=== PATIENT | male | born 1965 | race Caucasian/White ===

== ENCOUNTER 2022-01-31 07:46 | Inpatient (IN) ==
--- NOTE | 2022-01-05 09:01 | PAT Medication Instructions ---
Medication Instructions Date of Service January 05, 2022 Home Medications apple cider vinegar 500 mg tablet 500 mg PO DAILY cinnamon bark 500 mg capsule (Cinnamon) 500 mg PO DAILY cyanocobalamin (vitamin B-12) 500 mcg tablet 500 mcg PO DAILY losartan 25 mg tablet 25 mg PO QAM niacin 250 mg tablet 250 mg PO DAILY tramadol 50 mg tablet 50 mg PO BID PRN STOP taking 2 weeks before surgery apple cider vinegar 500 mg tablet 500 mg PO DAILY cinnamon bark 500 mg capsule (Cinnamon) 500 mg PO DAILY STOP taking 48 hours before surgery niacin 250 mg tablet 250 mg PO DAILY DO NOT take the morning of surgery cyanocobalamin (vitamin B-12) 500 mcg tablet 500 mcg PO DAILY losartan 25 mg tablet 25 mg PO QAM Take morning of surgery With a small sip of water, OTHERWISE NOTHING TO EAT OR DRINK AFTER MIDNIGHT: tramadol 50 mg tablet 50 mg PO BID PRN(if needed) Take evening before surgery tramadol 50 mg tablet 50 mg PO BID PRN(if needed) Other Notes If you have any questions please call us at [phone] or [phone] or [phone] or [phone]
--- NOTE | 2022-01-10 11:27 | Anesthesiology Consultation ---
Date of Service January 10, 2022 Assessment & Plan (1) Encounter for pre-operative examination: COVID screening: Per assessment on 01/10: No known COVID-19 positive contacts or current COVID-19 related symptoms. Travel screen negative. Patient vaccinated. Patient was Covid positive 10/28/21 (home test) > symptoms resolved. DOS greater than 90 days after Covid positive testing. At surgeon discretion if preop Covid testing being done. Chart Review Chart Review: Acceptable Risk for Surgery and Patient seen in Pre Admission Testing Teaching & Discussion Pre-Anesthesia Teaching/Discussion Notes: Instructed NPO after midnight before surgery,except medications with 15 cc of water. Medication instructions provided according to the PAT guidelines. History Surgery Operation Date: 01/31/22 07:45 Proposed Procedures p L2-L4 Decompression and Fusion, Spinal Cord Monitoring - Graham Webb DO Height/Weight Height: 5 ft 10 in Weight: 103 kg Allergies Allergy/AdvReac Type Severity Reaction Status Date / Time No Known Allergies Allergy Verified 01/04/22 14:13 Medications Home Medications Medication Instructions Recorded Confirmed Last Taken apple cider vinegar 500 mg tablet 500 mg PO DAILY 01/04/22 01/04/22 Unknown cinnamon bark 500 mg capsule 500 mg PO DAILY 01/04/22 01/04/22 Unknown (Cinnamon) cyanocobalamin (vitamin B-12) 500 500 mcg PO DAILY 01/04/22 01/04/22 Unknown mcg tablet losartan 25 mg tablet 25 mg PO QAM 01/04/22 01/04/22 Unknown niacin 250 mg tablet 250 mg PO DAILY 01/04/22 01/04/22 Unknown tramadol 50 mg tablet 50 mg PO BID PRN Pain 01/04/22 01/04/22 Unknown Past Medical History Medical History (Updated 01/10/22 @ 11:24 by Sepideh Byrne) Arthritis Degenerative disc disease History of COVID-19 10/28/21 (home test) > symptoms resolved History of kidney stones Hx of gastritis Hypertension Spinal stenosis Exercise / Class Metabolic Activity II 4-5 Yardwork/Stairs/Walk up hill Past Family History Family History (Updated 01/04/22 @ 14:20 by Tori Esquivel RN) Other No family history of adverse response to anesthesia Past Surgical History Surgical History (Updated 01/05/22 @ 10:32 by Sepideh Byrne) Cornea transplant recipient UNKNOWN SIDE H/O arthroscopy of shoulder UNKNOWN SIDE History of colonoscopy History of cystoscopy STONE REMOVAL History of esophagogastroduodenoscopy (EGD) Past Anesthesia History No Hx of Anesthesia Complications and No Family Hx of Anesthesia Complications History of PONV No Hx of PONV and No Hx of Motion Sickness Social History Smoking Status: Never smoker tobacco type: smokeless tobacco Do You Dip or Chew Tobacco: No (QUIT 2010) Hx Alcohol Use: Yes Alcohol type: beer alcohol intake frequency: a few times a month substance use type: does not use Review of Systems Patient denies chest pain, shortness of breath, dyspnea on exertion, fever, chills, cough, wheezing, palpitations. Physical Exam Vital Signs VITALS BP 147/83 P 70 TEMP 98.6 SP02 98%RA RESP 16 PHYSICAL Full cervical extension range of motion. Full TMJ range of motion. TMD 3 finger breaths Mallampati Score 3 Dentition: intact Lungs: clear throughout to auscultation Cardiac: regular rate and rhythm, no murmurs noted Spine: normal Carotid arteries: negative bruit Extremities: no edema Lab Results Anesthesia Preop Results Results Anesthesia Widget: WBC 5.95 K/ul (4.8-10.8) 01/10/22 Hgb 15.3 g/dl (14.0-18.0) 01/10/22 Hct 45.6 % (40.1-51.0) 01/10/22 Plt 260 K/uL (130-400) 01/10/22 Na 138 mmol/L (136-145) 01/10/22 K 3.8 mmol/L (3.5-5.1) 01/10/22 Cl 104 mmol/L (98-107) 01/10/22 CO2 28 mmol/L (21-32) 01/10/22 BUN 12 mg/dl (6-23) 01/10/22 Creat 0.86 mg/dl (0.6-1.4) 01/10/22 Glucose Level 123 mg/dl (70-99(Fasting)) H 01/10/22 PT 10.8 Seconds (9.0-12.0) 01/10/22 PTT 25.1 Seconds (21.0-31.0) 01/10/22 INR 1.0 (0.9-1.1) 01/10/22 Urine Color Yellow 01/10/22 Urine Appearance Clear (Clear) 01/10/22 Urine pH 6.0 (4.5-7.5) 01/10/22 Urine Specific [place] 1.023 (1.000-1.030) 01/10/22 Urine Protein Negative (Negative) 01/10/22 Urine Glucose (UA) 2+ (Negative) H 01/10/22 Urine Ketones Negative (Negative) 01/10/22 Urine Blood Negative (Negative) 01/10/22 Urine Nitrite Negative (Negative) 01/10/22 Urine Bilirubin Negative (Negative) 01/10/22 Urine Urobilinogen Negative (Negative) 01/10/22 Urine Leukocyte Esterase Negative (Negative) 01/10/22 Blood Type O Positive 01/10/22 Antibody Screen NEGATIVE 01/10/22 Testing Electrocardiogram Date: 01/10/22 NSR with sinus arrhythmia at 60bpm. Rightward axis. Chest X-Ray Date: 01/10/22 FINDINGS: Cardiac silhouette is enlarged. No pneumothorax, pleural effusion, airspace consolidation or overt pulmonary edema. Bones of the chest appear grossly intact. Degenerative changes of the shoulders and spine. Healed chronic fracture of the lateral right ninth rib. IMPRESSION: No acute process of the chest. COVID-19 Risk Screen Screening Information COVID-19 Screen Date: 01/10/22 Exposure 21 Days Family/Household +COVID Last 21 Days: No Exposure 10 Days Any COVID Exposure Last 10 Days: No Symptoms Last 10 Days Experienced COVID Sx Last 10 Days: No + COVID 0-90 Days COVID + in Last 0-90 Days: Yes + COVID Test 0-10 Day: No + COVID Test 11-90 Day: Yes
[~2022-01-31 07:46] MED LIST: ACETAMINOPHEN 500 MG TAB PO SCH; CeleBREX 200 MG CAP PO SCH; GABAPENTIN 600 MG DOSE PO SCH; LR 15ML/HR IV SCH; ceFAZolin 2000MG 2,000 MG/15 ML SYR IV SCH
[2022-01-31] MEDS ORDERED: LIDOCAINE 2% MPF LOCAL 5 ML VIAL INFIL ONE (08:39)
[2022-01-31] MEDS ORDERED: GLYCOPYRROLATE 0.2 MG/ML VIAL ONE (08:39)
[2022-01-31] MEDS ORDERED: ROCURONIUM BROMIDE 10 MG/ML 5 ML VIAL IV ONE ×4 (08:39→10:43)
[2022-01-31] MEDS ORDERED: DEXAMETHASONE SOD INJ 4 MG/ML VIAL ONE (08:39)
[2022-01-31] MEDS ORDERED: MIDAZOLAM HCL 1 MG/ML 2ML VIAL ONE (08:39)
[2022-01-31] MEDS ORDERED: PROPOFOL IV EMULSION 10 MG/ML 20 ML VIAL IV ONE (08:39)
[2022-01-31] MEDS ORDERED: ONDANSETRON INJ 2 MG/ML 2 ML VIAL ONE (08:39)
[2022-01-31] MEDS ORDERED: NEOSTIGMINE METHYLSULFATE 1 MG/ML 10ML VIAL ONE (08:39)
[2022-01-31] MEDS ORDERED: fentaNYL citrate 100 MCG/2 ML VIAL ONE (08:40)
[2022-01-31] MEDS ORDERED: ePHEDrine sulfate 50 MG/ML AMP IV PRN (09:19)
[2022-01-31] MEDS ORDERED: fentaNYL citrate 100 MCG/2 ML VIAL IV PRN (09:19)
[2022-01-31] MEDS ORDERED: HYDROmorphone INJ 2 MG/ML SYR/VIAL IV PRN (09:19)
[2022-01-31] MEDS ORDERED: ONDANSETRON INJ 2 MG/ML 2 ML VIAL IV PRN ×2 (09:19→14:39)
[2022-01-31] MEDS ORDERED: ATROPINE SULFATE 0.1 MG/ML 10ML SYR IV PRN (09:19)
--- NOTE | 2022-01-31 09:29 | History & Physical Bridge Note ---
Date of Service January 31, 2022 History & Physical Bridge Note I have examined the patient, reviewed the History & Physical and in the interval since the performance of the History & Physical I have noted the following changes of clinical significance: no changes noted
--- NOTE | 2022-01-31 09:29 | History & Physical Report ---
Date of Service January 31, 2022 Assessment & Plan (1) Neurogenic claudication due to lumbar spinal stenosis: Plan: L2 L4 decompression and fusion History of Present Illness Chief Complaint: Back and bilateral leg pain Primary Care Provider: [place] This is a 55-year-old male who presents with chronic persistent back and leg pain after failing course of nonoperative care is here for surgical invention. Allergies Allergy/AdvReac Type Severity Reaction Status Date / Time No Known Allergies Allergy Verified 01/31/22 08:06 Home Medications Medication Instructions Recorded Confirmed Type apple cider vinegar 500 mg tablet 500 mg PO DAILY 01/04/22 01/31/22 History cinnamon bark 500 mg capsule 500 mg PO DAILY 01/04/22 01/31/22 History (Cinnamon) cyanocobalamin (vitamin B-12) 500 500 mcg PO DAILY 01/04/22 01/31/22 History mcg tablet losartan 25 mg tablet 25 mg PO QAM 01/04/22 01/31/22 History niacin 250 mg tablet 250 mg PO DAILY 01/04/22 01/31/22 History tramadol 50 mg tablet 50 mg PO BID PRN Pain 01/04/22 01/31/22 History Past Med/Surg History Medical History (Updated 01/31/22 @ 09:29 by Graham Webb DO) Arthritis Degenerative disc disease History of COVID-19 10/28/21 (home test) > symptoms resolved History of kidney stones Hx of gastritis Hypertension Spinal stenosis Surgical History Cornea transplant recipient UNKNOWN SIDE H/O arthroscopy of shoulder UNKNOWN SIDE History of colonoscopy History of cystoscopy STONE REMOVAL History of esophagogastroduodenoscopy (EGD) Family History (Updated 01/04/22 @ 14:20 by Tori Esquivel RN) Other No family history of adverse response to anesthesia Social History Smoking Status: Never smoker Second Hand Exposure: Yes (IN THE PAST); Do You Dip or Chew Tobacco: No (QUIT 2010); Hx Alcohol Use: Yes Alcohol type: beer Preferred Language: [place] Coil Maker Required: No Beliefs That Will Affect Care: None Current Living Situation: Spouse Feels Safe at Home: Yes Safety Concerns: Feels Safe At This Time Assistive Devices: Contacts, Glasses and Hearing Aid - Right Physical Exam Physical Exam: Patient is alert and oriented Heart regular rhythm Lungs clear Results & Data Results & Data ([facility]) Vital Signs (Past 12 Hours) Vital Signs Temp Pulse Resp BP Pulse Ox O2 Del Method 01/31/22 08:09 36.7 C 83 20 162/75 H 96 Room Air
[2022-01-31] MEDS ORDERED: BUPIVACAINE/EPINEPHRINE 0.25% 1:200,000 30 ML VIAL ONE (09:58)
[2022-01-31] MEDS ORDERED: ceFAZolin 330 MG/ML 1 GM VIAL ONE (09:58)
[2022-01-31] MEDS ORDERED: HYDROmorphone INJ 2 MG/ML SYR/VIAL ONE (10:30)
[2022-01-31] MEDS ORDERED: FLOSEAL HEMOSTATIC MATRIX 10ML TOP ONE (10:55)
--- NOTE | 2022-01-31 12:41 | Operative Report ---
Post Operative Report Pre & Post Diagnosis Operation Date: 01/31/22 09:35 Pre-Op Diagnosis: Spinal Stenosis, Lumbar Region with Neurogenic Claudication Post-Op Diagnosis: Spinal Stenosis, Lumbar Region with Neurogenic Claudication I identified the patient and participated in the time-out.: Yes Procedure Operation Date: 01/31/22 09:35 Actual Procedures #1 lumbar decompression with bilateral medial facetectomies and foraminotomies L1-L2, L2-L3 and L3-L4. #2 posterior spinal fusion L2-L3 L3-L4. #3 placement of posterior instrumentation L2-L4. #5 placement of Spira 13 x 26 mm cage at L2-L3 and 14 x 26 mm cage at L3-L4. #6 placement locally harvested morselized autograft and posterior gutters. #7 placement of I factor combined with V toss in interbody space and posterior lateral gutters. Surgeon Graham Webb, Hydro Station Operator None Estimated Blood Loss 250 Findings See Below The patient is 5 foot 10 weighing over 105 kg with a BMI in excess of 33. The patient's body habitus did contribute to significant technical difficulty required deepest retractors longer instruments in order to perform his procedure. He has had at least 50% increased operative time. Specimens None Indications This is a 56-year-old male who presents above-mentioned diagnosis after failing course of nonoperative care is here for surgical invention. Description of Procedure Patient met with identified informed consent obtained. Patient was then taken to the operative suite underwent patient placed in a prone position the Jex table top Fermín frame. All bony prominences well-padded eyes inspected to ensure no external pressure placed upon the. This point the lumbar spine was prepped and draped in normal sterile fashion. Sharp dissection with the assistance of Bovie cautery was performed down to and exposing the lamina and transverse processes of L2-L3-L4 bilaterally from a caudal cephalad fashion complete laminectomy of L3 L2 and partial laminectomy of L1 was performed including bilateral medial facetectomies and foraminotomies addressing severe spinal stenosis. Pedicle screws then placed in L2-L3-L4 bilaterally with assistance of fluoroscopy the properly sized cynthia placed. By way of a transforaminal approach on the left complete discectomy of L3-L4 on the left was performed endplates curetted to subcortically bone and a 14 x 26 mm spiral cage with I factor tapped in position. Then proceeded L2-L3 and again by way the transforaminal approach and left complete discectomy performed endplates curetted to subcortically bone and a 13 x 26 mm spiral cage with I factor tapped the position. The rods were then compressed locked in final position b ilaterally. The transverse processes of L2-L3-L4 burred to subcortical bleeding bone. I factor model V toss and locally harvested morselized autograft was placed in the posterior gutters. 15 round HARPER drain inserted. The incision was then closed with 1 Vicryl the fascia 2-0 Vicryl subcutaneously and 4 Monocryl for final skin closure. Steri-Strips dressings placed. Patient waken taken to PACU stable condition. Please note spinal cord monitoring was utilized at the procedure no changes noted. I attest to the content of the Intraoperative Record and any orders documented therein. Any exceptions are noted below.
--- NOTE | 2022-01-31 14:05 | Fluoroscopy Report ---
FL lumbar spine 2-3V CLINICAL HISTORY: L2-L4 DECOMP/FUSION TECHNIQUE: 2 views were obtained with the C-arm in the OR with the above procedure. Total fluoroscopy time was 59 seconds. Radiation dose was 31.76 mGy. Comparison: None available at the time of this dictation. FINDINGS/IMPRESSION: Intraoperative images were obtained of L1-L4 decompression and fusion. Please correlate with intraoperative fluoroscopy and operative report. ACT 112: Negative or not required by law. Electronically signed by: Nando Pan M.D. 01/31/2022 2:04 PM
--- NOTE | 2022-01-31 14:28 | Anesthesiology Progress Note ---
Date of Service January 31, 2022 Anesthesia Post Procedure Vital Signs Vital Signs: Temp Pulse Resp BP Pulse Ox O2 Del Method O2 Flow Rate 01/31/22 14:00 37.1 C 77 16 110/61 95 Nasal Cannula 2 01/31/22 13:50 37.1 C 73 18 127/59 L 96 Nasal Cannula 2 01/31/22 13:40 37.1 C 65 16 117/62 95 Nasal Cannula 2 01/31/22 13:30 58 L 18 119/53 L 96 Nasal Cannula 2 01/31/22 13:20 58 L 12 109/59 L 96 Oxymask 3 01/31/22 13:00 63 16 95/61 L 95 Oxymask 5 01/31/22 12:51 63 21 99/62 L 96 Oxymask 5 01/31/22 12:51 36.3 C L 67 16 111/71 99 Oxymask 5 01/31/22 08:09 36.7 C 83 20 162/75 H 96 Room Air Pain Intensity Medial Back: Pain Intensity: 1 Transfer of Care Handoff Completed per policy Notes Mental Status: alert / awake / arousable and participated in evaluation Patient Amnestic to Procedure: Yes Nausea / Vomiting: adequately controlled Pain: adequately controlled Airway Patency, RR, SpO2: stable & adequate BP & HR: stable & adequate Hydration State: stable & adequate Anesthetic Complications: no major complications apparent and Pt Satisfied with anesthetic care
[2022-01-31] MEDS ORDERED: HYDROmorphone INJ 0.5 MG/0.5 ML SYR IV PRN (14:39)
[2022-01-31] MEDS ORDERED: hydrOXYzine HCl 25 MG TAB PO PRN (14:39)
[2022-01-31] MEDS ORDERED: diphenhydrAMINE Capsule 25 MG CAP PO PRN (14:39)
[2022-01-31] MEDS ORDERED: ONDANSETRON 4 MG OD TAB PO PRN (14:39)
[2022-01-31] MEDS ORDERED: NALOXONE HCL 0.4 MG/1 ML VIAL/CARP IV PRN (14:39)
[2022-01-31] MEDS ORDERED: FAMOTIDINE 20 MG TAB PO PRN (14:39)
[2022-01-31] MEDS ORDERED: LORazepam 2 MG/1 ML VIAL IV PRN (14:39)
[2022-01-31] MEDS ORDERED: MAGNESIUM HYDROXIDE SUSP 30 ML UDC PO PRN (14:39)
[2022-01-31] MEDS ORDERED: METOCLOPRAMIDE HCL INJ 5 MG/ML 2 ML VIAL IV PRN (14:39)
[2022-01-31] MEDS ORDERED: ALUMINUM/MAGNESIUM SUSP 30 ML UDC PO PRN (14:39)
[2022-01-31] MEDS ORDERED: HYDROmorphone INJ 1 MG/ML SYRINGE IV PRN (14:39)
[2022-01-31] MEDS ORDERED: traMADol HCL 50 MG TABLET PO PRN (14:39)
[2022-01-31] MEDS ORDERED: ACETAMINOPHEN 500 MG TAB PO PRN (14:39)
[2022-01-31] MEDS ORDERED: bisacodyL 10 MG SUPP PR PRN (14:39)
[2022-01-31] MEDS ORDERED: DO NOT ADMINISTER PNEUMOCOCCAL VACCINE PRN (14:39)
[2022-01-31] MEDS ORDERED: LORazepam 0.5 MG TAB PO PRN (14:39)
[2022-01-31] MEDS ORDERED: ACETAMINOPHEN 1,000 MG/100 ML VIAL IV PRN (14:39)
[2022-01-31] MEDS ORDERED: DO NOT ADMINISTER FLU VACCINE PRN (14:39)
[2022-01-31] MEDS ORDERED: SOD PHOSPHATE/SOD BIPHOSPHATE ENEMA 132 ML BTL PR PRN (14:39)
[2022-01-31] MEDS ORDERED: PROMETHAZINE HCL 12.5 MG in SODIUM CHLORIDE 0.9% 50 ML IV PRN (14:39)
[2022-01-31] MEDS: LACTATED RINGER'S 1,000 ML IV SCH ×2 (15:18→20:51)
--- NOTE | 2022-01-31 15:46 | Hospitalist Consultation ---
Date of Consultation January 31, 2022 Assessment & Plan (1) Neurogenic claudication due to lumbar spinal stenosis: POD#0 L2-L4 decompression and fusion by Dr. Webb Activity and wound care orders as per ortho Pain control with bowel regimen PT/OT Monitor H/H for acute blood loss anemia and transfuse blood products PRN EBL 250 cc (2) Hypertension: BP controlled, continue losartan DVT prophylaxis TEDs/SCDs as per spine Ortho Thank you for this consultation. We will follow the patient with you during their hospital stay. You can reach a member of the [facility] Hospitalist Team 29/08 via the [employer] Hospitalist role in [place] [employer]. Supervising Physician Co-Signing Physician Notes History and physical exam performed by me Findings and plan as detailed by Reyna AGUSTIN History of Present Illness Reason for Consultation: Postop medical management Requesting Physician: Dr. Webb Attending Physician: Graham Webb, History of Present Illness 56-year-old male with PMH HTN, and other problems listed below who is s/p L2-L4 decompression fusion today by Dr. Webb. Postoperatively, the patient is doing well. He reports his pain is well controlled. No chest pain or shortness of breath. Denies abdominal pain or nausea. No lightheadedness or dizziness. Casillas catheter is in place draining clear yellow urine. Allergies Allergy/AdvReac Type Severity Reaction Status Date / Time No Known Allergies Allergy Verified 01/31/22 08:06 Home Medications Medication Instructions Recorded Confirmed Type apple cider vinegar 500 mg tablet 500 mg PO DAILY 01/04/22 01/31/22 History cinnamon bark 500 mg capsule 500 mg PO DAILY 01/04/22 01/31/22 History (Cinnamon) cyanocobalamin (vitamin B-12) 500 500 mcg PO DAILY 01/04/22 01/31/22 History mcg tablet losartan 25 mg tablet 25 mg PO QAM 01/04/22 01/31/22 History niacin 250 mg tablet 250 mg PO DAILY 01/04/22 01/31/22 History tramadol 50 mg tablet 50 mg PO BID PRN Pain 01/04/22 01/31/22 History Patient History Medical History Arthritis Degenerative disc disease History of COVID-19 10/28/21 (home test) > symptoms resolved History of kidney stones Hx of gastritis Hypertension Spinal stenosis Surgical History Cornea transplant recipient UNKNOWN SIDE H/O arthroscopy of shoulder UNKNOWN SIDE History of colonoscopy History of cystoscopy STONE REMOVAL History of esophagogastroduodenoscopy (EGD) Family History (Updated 01/31/22 @ 15:40 by VAMSI Duran) Mother Diabetes Other No family history of adverse response to anesthesia Social History Smoking Status: Never smoker Second Hand Exposure: Yes (IN THE PAST); Do You Dip or Chew Tobacco: No (QUIT 2010); Hx Alcohol Use: Yes Alcohol type: beer Preferred Language: Hungarian Head Of Ethics And Compliance Required: No Beliefs That Will Affect Care: None Current Living Situation: Spouse Feels Safe at Home: Yes Safety Concerns: Feels Safe At This Time Assistive Devices: Contacts, Glasses and Hearing Aid - Right Review of Systems Review of Systems: ROS per HPI, all other systems reviewed and negative Physical Exam Constitutional: WD/WN, vitals as above Eyes: PERRL, conjunctivae normal, anicteric sclerae ENMT: external ear and nose normal, oropharynx normal Respiratory: normal respiratory effort, lungs clear to auscultation Cardiovascular: Rate/Rhythm: regular rate and regular rhythm Vessels: normal peripheral pulses Extremities: no edema Gastrointestinal (Abdomen): normal bowel sounds, soft, nontender, no hepatosplenomegaly Musculoskeletal: S/p back surgery, strength strong and equal BLE, drain in place draining bloody drainage Skin: no rashes, warm and dry Neurologic: PERRL, EOMI, accommodation nl, no face palsy, no dysarthria Psychiatric: A+Ox3, euthymic affect Results & Data Results & Data ([facility]) Vital Signs (Past 12 Hours) Vital Signs Temp Pulse Resp BP Pulse Ox O2 Del Method O2 Flow Rate 01/31/22 15:12 36.6 C 76 16 136/83 95 Nasal Cannula 1 01/31/22 14:40 37.1 C 71 16 112/74 96 Nasal Cannula 2 01/31/22 14:00 37.1 C 77 16 110/61 95 Nasal Cannula 2 01/31/22 13:50 37.1 C 73 18 127/59 L 96 Nasal Cannula 2 01/31/22 13:40 37.1 C 65 16 117/62 95 Nasal Cannula 2 01/31/22 13:30 58 L 18 119/53 L 96 Nasal Cannula 2 01/31/22 13:20 58 L 12 109/59 L 96 Oxymask 3 01/31/22 13:00 63 16 95/61 L 95 Oxymask 5 01/31/22 12:51 63 21 99/62 L 96 Oxymask 5 01/31/22 12:51 36.3 C L 67 16 111/71 99 Oxymask 5 01/31/22 08:09 36.7 C 83 20 162/75 H 96 Room Air
[2022-01-31] MEDS: ceFAZolin 2000MG 2,000 MG/15 ML SYR IV SCH (17:48)
[2022-01-31] MEDS: DOCUSATE SODIUM/SENNA 50/8.6MG TAB PO SCH (20:45)
[2022-02-01] MEDS: oxyCODONE HCL IR 5 MG TAB (IMMEDIATE RELEASE) PO PRN ×3 (00:41→15:35)
[2022-02-01] MEDS: ceFAZolin 2000MG 2,000 MG/15 ML SYR IV SCH (01:49)
[2022-02-01] MEDS: POLYETHYLENE (MIRALAX) 17 GM PACK PO SCH ×4 (05:52→20:17)
[2022-02-01 08:11] LABS: Basophils # (auto) 0.02 K/uL (0-0.2); Basophils % (auto) 0.1 %; Hematocrit (blood only) 35.4 % (40.1-51.0); Hemoglobin 12.4 g/dl (14.0-18.0); Immature Granulocytes # (auto) 0.13 K/uL (0.00-0.02); Immature Granulocytes % (auto) 0.9 %; Lymphocytes # (auto) 1.54 K/uL (1.2-3.4); Lymphocytes % (auto) 10.2 %; Mean Corpuscular Volume 82.9 fL (80.0-100.0); Mean Platelet Volume 9.8 fL (9.4-12.4); Monocytes # (auto) 1.09 K/uL (0.24-0.82); Monocytes % (auto) 7.2 %; Neutrophils % (auto) 81.6 %; Platelet Count 251 K/uL (130-400); RDW Coefficient of Variation 13.2 % (11.5-14.5); RDW Standard Deviation 40.3 fL (36.4-46.3); Red Blood Count 4.27 M/uL (4.63-6.08); White Blood Count 15.08 K/ul (4.8-10.8)
[2022-02-01 08:31] LABS: BUN Creatinine Ratio 17.6 (10-20); Calcium 8.5 mg/dl (8.5-10.1); Creatinine Clr Calc Pharmacy 119.5 ml/min; Est GFR (African American) 113.7 ml/min; Est GFR (Non-African American) 98.1 ml/min; Potassium 4.3 mmol/L (3.5-5.1)
[2022-02-01] MEDS: NIACIN 500 MG TAB PO SCH (09:09)
[2022-02-01] MEDS: CYANOCOBALAMIN (B-12) 500 MCG TABLET PO SCH (09:09)
[2022-02-01] MEDS: LOSARTAN POTASSIUM 25 MG TAB PO SCH (09:09)
[2022-02-01] MEDS: dexAMETHasone 6 MG in SYRINGE 0 ML IV SCH (09:10)
--- NOTE | 2022-02-01 09:52 | Orthopedic Progress Note ---
Date of Service February 01, 2022 Assessment & Plan (1) Neurogenic claudication due to lumbar spinal stenosis: Plan: At this time we will continue physical therapy monitor his HARPER output anticipate possible discharge home tomorrow. Admission and Anticipated Discharge Date Admission Date: January 31, 2022 Subjective Back pain controlled leg pain improved Physical Exam Physical Exam: Patient is in the chair at the bedside. Is good strength testing. Peers comfortable. Results & Data ([facility]) Vital Signs (Past 12 Hours) Vital Signs Temp Pulse Resp BP Pulse Ox O2 Del Method 02/01/22 07:46 36.6 C 66 18 125/66 94 Room Air 02/01/22 03:35 36.7 C 76 18 130/76 95 Room Air 01/31/22 22:50 36.8 C 86 16 128/78 95 Room Air
--- NOTE | 2022-02-01 15:00 | Hospitalist Progress Note ---
Date of Service February 01, 2022 Assessment & Plan (1) Neurogenic claudication due to lumbar spinal stenosis: Plan: POD#1 L2-L4 decompression and fusion by Dr. Webb Activity and wound care orders as per ortho Pain control with bowel regimen PT eval noted Hb is 12.4 Leukocytosis likely reactive Monitor Hb (2) Hypertension: Plan: BP controlled, continue losartan DVT prophylaxis TEDs/SCDs as per spine Ortho Admission and Anticipated Discharge Date Admission Date: January 31, 2022 Subjective Patient seen and examined Reports surgical site pain is well controlled Denied any nausea, vomiting Yet to move bowels but passing flatus Denied chest pain, cough, shortness of breath Denied dysuria, freq, urgency Physical Exam Constitutional: + well hydrated; no acute distress Eyes: PERRL, conjunctivae normal, anicteric sclerae ENMT: external ear and nose normal, oropharynx normal Respiratory: normal respiratory effort, lungs clear to auscultation Cardiovascular: Rate/Rhythm: regular rate and regular rhythm S1 S2 Gastrointestinal (Abdomen): normal bowel sounds, soft, nontender, no hepatosplenomegaly Musculoskeletal: Clean dressing over low back with drain in situ Neurologic: PERRL, EOMI, accommodation nl, no face palsy, no dysarthria Psychiatric: A+Ox3, euthymic affect Results & Data Results & Data ([facility]) Vital Signs (Past 12 Hours) Vital Signs Temp Pulse Resp BP Pulse Ox O2 Del Method 02/01/22 07:46 36.6 C 66 18 125/66 94 Room Air 02/01/22 03:35 36.7 C 76 18 130/76 95 Room Air Laboratory Results Abnormal lab results 02/01/22 02/01/22 Range/Units 07:47 07:47 WBC 15.08 H (4.8-10.8) K/ul RBC 4.27 L (4.63-6.08) M/uL Hgb 12.4 L (14.0-18.0) g/dl Hct 35.4 L (40.1-51.0) % Neut # (Auto) 12.30 H (1.4-6.5) K/uL [place] # (Auto) 1.09 H (0.24-0.82) K/uL Immature Gran # (Auto) 0.13 H (0.00-0.02) K/uL Sodium 134 L (136-145) mmol/L Glucose 186 H (70-99(Fasting)) mg/dl
[2022-02-01] MEDS: DOCUSATE SODIUM/SENNA 50/8.6MG TAB PO SCH (20:17)
[2022-02-02] MEDS: oxyCODONE HCL IR 5 MG TAB (IMMEDIATE RELEASE) PO PRN ×3 (05:21→15:04)
[2022-02-02] MEDS: POLYETHYLENE (MIRALAX) 17 GM PACK PO SCH ×2 (05:22→12:38)
[2022-02-02 09:56] LABS: Hematocrit (blood only) 37.8 % (40.1-51.0); Hemoglobin 12.7 g/dl (14.0-18.0); Mean Corpuscular Hgb Conc 33.6 g/dL (32.0-36.0); Mean Corpuscular Volume 86.3 fL (80.0-100.0); Mean Platelet Volume 9.9 fL (9.4-12.4); Platelet Count 268 K/uL (130-400); RDW Coefficient of Variation 13.3 % (11.5-14.5); RDW Standard Deviation 42.1 fL (36.4-46.3); Red Blood Count 4.38 M/uL (4.63-6.08); White Blood Count 16.81 K/ul (4.8-10.8)
[2022-02-02 10:27] LABS: BUN Creatinine Ratio 15.9 (10-20); Calcium 8.7 mg/dl (8.5-10.1); Creatinine Clr Calc Pharmacy 115.4 ml/min; Est GFR (African American) 112.1 ml/min; Est GFR (Non-African American) 96.7 ml/min; Potassium 3.5 mmol/L (3.5-5.1)
[2022-02-02] MEDS: dexAMETHasone 6 MG in SYRINGE 0 ML IV SCH ×2 (10:40→13:06)
[2022-02-02] MEDS: LOSARTAN POTASSIUM 25 MG TAB PO SCH (10:40)
[2022-02-02] MEDS: CYANOCOBALAMIN (B-12) 500 MCG TABLET PO SCH (10:40)
[2022-02-02] MEDS: NIACIN 500 MG TAB PO SCH (10:41)
--- NOTE | 2022-02-02 10:54 | Hospitalist Progress Note ---
Date of Service February 02, 2022 Assessment & Plan (1) Neurogenic claudication due to lumbar spinal stenosis: Plan: S/P L2-L4 decompression and fusion by Dr. Webb on 01/31/22 Activity and wound care orders as per ortho Pain control Continue bowel regimen Continue PT/OT Incentive Spirometry Leukocytosis likely reactive and due to Decadron Monitor CBC Continue incentive spirometry (2) Hypertension: Plan: Continue losartan DVT Px: TEDs/SCDs as per spine Ortho Admission and Anticipated Discharge Date Admission Date: January 31, 2022 Subjective Patient is seen and examined at bedside Back pain at surgical site is controlled States doing well with PT Denies any chest pain, shortness breath, dizziness, nausea, abdominal pain +Flatus Review of Systems Review of Systems: All systems reviewed & are unremarkable except as noted in Subjective Physical Exam Physical Exam: Physical Exam: Vitals signs as noted above General Appearance:Obese, no apparent distress Head: normocephalic, Atraumatic Eyes: normal inspection, EOMI Neck: supple, Trachea midline Respiratory/Chest: Normal breath sounds, CTA, No accessory muscle use Cardiovascular: S1, S2, No murmur Abdomen/GI:Soft, Non tender, Bowel sounds present Back: Surgical site in dressing Extremities/Musculoskeletal:normal inspection, no edema Neurologic/Psych:AAOX3, grossly no focal neurological deficits Skin: normal color, warm Results & Data Results & Data ([facility]) Vital Signs (Past 12 Hours) Vital Signs Temp Pulse Resp BP Pulse Ox O2 Del Method 02/02/22 07:34 37.1 C 70 14 129/77 95 Room Air Laboratory Results Short CBC 02/02/22 Range/Units 09:20 WBC 16.81 H (4.8-10.8) K/ul Hgb 12.7 L (14.0-18.0) g/dl Hct 37.8 L (40.1-51.0) % Plt Count 268 (130-400) K/uL BMP 02/02/22 09:20 Sodium 137 Potassium 3.5 Chloride 103 Carbon Dioxide 28 BUN 14 Creatinine 0.88 Glucose 167 H Calcium 8.7
--- NOTE | 2022-02-02 15:04 | Discharge Summary ---
Date of Service February 02, 2022 Principal Diagnosis Lumbar spinal stenosis with neurogenic claudication Discharge Data Allergies Allergy/AdvReac Type Severity Reaction Status Date / Time No Known Allergies Allergy Verified 01/31/22 08:06 Consultations 01/31/22 14:39 Consult Hospitalist Routine Procedures Performed Operation Date: 01/31/22 09:35 Actual Procedures p L2-L4 Decompression and Fusion, Spinal Cord Monitoring(Not Applicable) - Graham Webb DO Ordered Studies 01/31/22 [place] lumbar spine 2-3V Routine Hospital Course (1) Neurogenic claudication due to lumbar spinal stenosis: Patient with lumbar decompression fusion tolerated this well was taken to orthopedic for postoperative. Postop day 1 is up and ambulating progressed to postop day #2. Pain well controlled. HARPER drain decreasing appropriately. Excellent strength testing. Subsequent discharge home. Discharge orders instructions from the chart for further review. Total Time Total Time Spent Total Time Spent (In Minutes): 20 minutes Discharge Plan Discharge Items Patient Disposition: Home - Self-Care Reason For Visit: Spinal Stenosis, Lumbar Region with Neurogenic Cla Discharge Diagnosis: Lumbar spinal stenosis with neurogenic claudication Activity: As commented below Non-emergency contact: Primary Care Provider Call non-emergency contact if: you have any medication questions Follow-up/Referrals: Twin Fenton [Primary Care Provider] - 02/09/22 9:40 am Diet: Regular Addtl Attending Provider Instructions: ACTIVITY RECOMMENDATIONS: SELF CARE INSTRUCTIONS AFTER THORACIC/LUMBAR FUSIONS 1. You may walk to your tolerance. It is good exercise for your legs and back. Expect some back and intermittent leg aches and pains. 2. You may perform "counter-top" level activities (make a sandwich, felicia with a project, etc.). 3. No bending or lifting of more than 10 pounds or back twisting of any nature (roll like a log when turning in bed). 4. You may ride in a car for 20-30 minutes at a time. No driving until after y our first visit with your doctor. 5. Frequent changes of position and restricting sitting to 30 minutes at a time will help limit the amount of back spasms and stiffness you may experience. 6. You may discontinue the use of ambulatory aids (cane, crutches, etc.) once your strength and confidence allow. 7. You may senior software engineer the shower and let water strike your incision when you arrive home at least once daily. Do not take a tub bath, sit in a hot tub or go into a swimming pool until after your first recheck in the office. SPECIAL CARE INSTRUCTIONS: VERY IMPORTANT TO READ AND REVIEW A. Your surgical incision has been closed with a cosmetic suture under the skin that will dissolve in about 6 weeks. In 14 days, you can use a pair of clean scissors and cut the suture that is left outside of the skin at the ends of your incision. 1. The small skin tapes can be removed 7 days after surgery if they have not fallen off by that point. 2. You may keep the wound open to air as much as possible to promote healing after post-op day number 5 unless told otherwise by your doctor. 3. If you think the wound looks like it is becoming infected (redness or worsening drainage) and/or you are experiencing fever, chill or worsening back pain and muscle spasms, contact the office so that we may evaluate you as soon as possible. B. Complications are uncommon, but please contact us if you have any signs or symptoms of: 1. wound infection (fever higher than 102.5 degrees F, redness, separation of wound, drainage, or increasing pain from the incision) 2. blood clots in legs (pain, swelling, redness and warmth in legs) 3. urinary tract infection (fever higher than 102.5 degrees F, burning upon urination or increased frequency of urination) 4. nerve problems (inability to walk on your toes or heels, numbness, loss of bowel or bladder control) 5. any other symptoms that concern you C. Please call the office at if you have any concerns or questions about your operation or recovery. D. No smoking! Smoking drastically decreases the chance of a solid fusion. E. Do not take any anti-inflammatory medications (Indocin, Advil, Motrin, Aspirin, Naprosyn, etc.) as these may inhibit the chance of a solid fusion. Tylenol is okay to take for pain. MANAGING PAIN AFTER SPINAL SURGERY 1. Narcotic medication is intended for short-term use and will be provided for surgical pain. Surgical pain usually lasts for a period of 4-6 weeks. Narcotic medication includes Percocet, Vicodin, Darvocet, Tylenol #3 or Lortab. 2. Longer-term pain is more appropriately treated with non-narcotic medication such as Tylenol ES. 3. Muscle spasm is not appropriately treated with narcotics. Muscle relaxers such as Soma, Flexeril or Skelaxin can be used along with Tylenol ES. 4. Remember that we all live with some "aches and pains". This is not unusual or uncommon after an injury or as we get older. a. Back pain is expected and may include muscle spasms for 4 to 6 weeks after surgery. The pain should gradually improve. If the pain worsens for no apparent reason, please contact the office. b. Intermittent leg pain may also be experienced and should not be concerned about unless it worsens for no apparent reason. If so, please contact the office. 5. We will provide appropriate medication within the normal guidelines of their prescribed use. We will also be very cautious and aware of potential abuse and extended duration of patients' medication needs. a. Pain medications are for your comfort and to assist with sleep and rest so that the tissue can heal. They are not provided in order to return to normal activity and should not be used through the day. To do so or worsening pain at night can result from ongoing tissue damage and development of tolerance to the prescribed medicine. 6. Please allow 2-3 days to process refills. Prescriptions will not be mailed but must be picked up at the office. FOLLOW UP VISIT: Keep your scheduled follow-up appointment. Any questions, please call the office at . Pending Studies at Discharge: No Stand-Alone Forms: My [facility] [employer], Smoking Cessation Medications and DC Order Prescriptions: New tramadol 50 mg tablet 50 mg PO Q6H PRN (Reason: pain, moderate) Qty: 30 0RF oxycodone 5 mg tablet 5 mg PO Q6H PRN (Reason: pain, severe) Qty: 30 0RF Continued tramadol 50 mg Tablet 50 mg PO BID PRN (Reason: Pain) cyanocobalamin (vitamin B-12) 500 mcg Tablet 500 mcg PO DAILY losartan 25 mg Tablet 25 mg PO QAM niacin 250 mg Tablet 250 mg PO DAILY apple cider vinegar 500 mg Tablet 500 mg PO DAILY cinnamon bark [Cinnamon] 500 mg Capsule 500 mg PO DAILY Discharge Orders: Discharge Order (Routine); Ordered 02/02/22 Ordered By: Graham M Tracey Admission Data Admit Date/Time: 01/31/22 12:45 Attending Provider: Graham Webb Admit Provider: Graham Webb Primary Care Provider: Twin Fenton Other Providers: Becky Monaco ; Shen Stewart
== END 2022-02-02 15:59 | disposition home or self-care (01) | DRG 455 ==
LOC: ASU 07:46 → 3N 12:45